=== PATIENT | female | born 1985 | race American Indian/Alaskan Native ===

== ENCOUNTER 2017-09-19 08:26 | Day surgery (SDC) | payer MEDICAID ==
[2017-09-19 08:51] VITALS: BMI 54.3
[2017-09-19 09:17] VITALS: O2SAT 100
[2017-09-19] MEDS ORDERED: Propofol 10 mg/ml Inj (20 ML) ONE (09:54)
[2017-09-19] MEDS ORDERED: Lidocaine 4% (Laryng-O-Jet) Kit MM ONE (10:10)
[2017-09-19 10:40] VITALS: TEMP 98.6
[2017-09-19 11:43] VITALS: BP 129/72; PULSE 68; RESP 20
== END 2017-09-19 11:30 | disposition home or self-care (01) ==
LOC: C.ENDO 08:26
PROVIDERS: ATTEND Internal Medicine Gastroenterology
DX: K21.0 Gastro-esophageal reflux disease with esophagitis (principal); K44.9 Diaphragmatic hernia without obstruction or gangrene; J45.909 Unspecified asthma, uncomplicated; E66.01 Morbid (severe) obesity due to excess calories; Z68.42 Body mass index [BMI] 45.0-49.9, adult; Z79.82 Long term (current) use of aspirin; Z79.51 Long term (current) use of inhaled steroids; K29.70 Gastritis, unspecified, without bleeding; B96.81 Helicobacter pylori [H. pylori] as the cause of diseases classified elsewhere
CPT/HCPCS: 43239; 84703; 88305; 88312; 88313; 88342; J2704